=== PATIENT | female | born 1975 | race Hispanic/Latino ===

== ENCOUNTER 2017-12-05 04:27 | Emergency (ER) | payer OTHER ==
[~2017-12-05] VITALS: Ht 160 cm; Wt 70.3 kg
[~2017-12-05 04:27] MED LIST: BENTYL10 MG PO; SEASONIQUE 0.11 EACH; ZOFRAN ODT4 MG PO
[2017-12-05 04:53] LABS: BASOPHILS % 0.3 % (0.0-1.0); EOSINOPHILS # (AUTO) 0.2 (0.0-0.4); EOSINOPHILS % 1.5 % (0.0-6.0); HEMATOCRIT 37.7 % (34.2-44.1); LYMPHOCYTES # (AUTO) 2.7 (1.0-3.2); LYMPHOCYTES % 18.4 % (18.0-39.1); MEAN CORPUSCULAR HGB CONC 34.5 g/dL (31-35); MEAN CORPUSCULAR VOLUME 81.3 fL (81-99); MONOCYTES % 6.7 % (4.4-11.3); NEUTROPHILS # (AUTO) 10.7 (2.1-6.9); NEUTROPHILS % 72.8 % (38.7-80.0); PLATELET COUNT 328 x10e3/uL (140-360); RED BLOOD COUNT 4.64 x10e6/uL (3.6-5.1); RED CELL DISTRIBUTION WIDTH 12.8 % (11.7-14.4)
[2017-12-05 05:12] LABS: ALANINE AMINOTRANSFERASE 18 IU/L (0-55); ALBUMIN 3.9 g/dL (3.5-5.0); ALBUMIN/GLOBULIN RATIO 1.1 (0.8-2.0); ALKALINE PHOSPHATASE 94 IU/L (40-150); ANION GAP 14.7 mmol/L (8-16); BLOOD UREA NITROGEN 8 mg/dL (7-26); BUN/CREATININE RATIO 12 (6-25); CALCIUM 8.9 mg/dL (8.4-10.2); CARBON DIOXIDE 21 mmol/L (22-29); CHLORIDE 99 mmol/L (98-107); CREATINE KINASE 71 IU/L (29-168); CREATININE, SERUM 0.68 mg/dL (0.57-1.11); EST GLOMERULAR FILTRATION RATE > 60 ML/MIN (60-); GLUCOSE 97 mg/dL (74-118); POTASSIUM 3.7 mmol/L (3.5-5.1); SODIUM 131 mmol/L (136-145)
--- NOTE | 2017-12-05 05:53 | Diagnostic Imaging Report ---
EXAM: CHEST SINGLE (PORTABLE), AP 1 view INDICATION: Palpitations COMPARISON: AP view of the chest July 22, 2016 FINDINGS: LINES/TUBES: None LUNGS: No consolidations or edema. PLEURA: No effusions or pneumothorax. HEART AND MEDIASTINUM: Normal size and contour. BONES AND SOFT TISSUES: No acute findings. IMPRESSION: No acute thoracic abnormality. Signed by: Dr. Yuni Jimenes M.D. on 12/05/2017 5:50 AM
[2017-12-05 06:07] LABS: PREGNANCY TEST, URINE NEGATIVE (NEGATIVE)
[2017-12-05 06:09] LABS: BILIRUBIN,URINE NEGATIVE (NEGATIVE); CLARITY,URINE CLEAR (CLEAR); COLOR,URINE YELLOW (YELLOW); KETONES,URINE NEGATIVE (NEGATIVE); LEUKOCYTE ESTERASE ,URINE NEGATIVE (NEGATIVE); NITRITE,URINE NEGATIVE (NEGATIVE); PROTEIN,URINE DIPSTICK NEGATIVE (NEGATIVE); URINE UROBILINOGEN 0.2 mg/dL (0.2 - 1)
[2017-12-05 06:10] LABS: AMPHETAMINES SCREEN,URINE NEGATIVE (NEGATIVE); BENZODIAZEPINES SCREEN,URINE NEGATIVE (NEGATIVE); PHENCYCLIDINE SCREEN,URINE NEGATIVE (NEGATIVE)
[2017-12-05 06:11] LABS: EPITHELIAL CELLS,URINE FEW /LPF; RBC,URINE 0-5 /HPF (0-5)
[2017-12-05 06:42] VITALS: BP 117/75
== END 2017-12-05 06:59 | disposition home or self-care (01) ==
LOC: ER 04:27
DX: R00.2 Palpitations (principal); R05 Cough; R07.89 Other chest pain; J20.9 Acute bronchitis, unspecified; N30.90 Cystitis, unspecified without hematuria
CPT/HCPCS: 36415; 71045; 80053; 80307; 81001; 81025; 82550; 82553; 83880; 84484; 85025; 85379; 93005; 99284

== ENCOUNTER 2018-10-13 02:52 | Emergency (ER) | payer BC ==
[~2018-10-13] VITALS: Ht 160 cm; Wt 70.3 kg
--- OUTSIDE RECORDS SUMMARY | 2018-10-13 02:55 | XMS REPORT ---
[facility] Address Unknown Phone Unavailable Care Team Providers Care Drawing Press Operator Name Role Phone DR JULIANNA MONTANO Unavailable Unavailable Stella CHARLES Unavailable Unavailable Payers Payer Name Policy Type Policy Number Effective Date Expiration Date Problems This patient has no known problems. Allergies, Adverse Reactions, Alerts Allergy Name Allergy Type Status Severity Reaction(s) Onset Date Inactive Date Treating Clinician Comments iodine DA Active SV 2018-10-13 00:00:00 sulfamethoxazole DA Active SV 2018-10-13 00:00:00 trimethoprim DA Active SV 2018-10-13 00:00:00 iodine DA Active SV 2015-12-24 00:00:00 Medications This patient has no known medications. Encounters Start Date/Time End Date/Time Encounter Type Admission Type Attending Clinicians [facility] Facility Care Department Encounter ID 2018-02-28 14:56:00 2018-04-14 23:59:00 Outpatient JULIANNA RIBERA [facility] [place] [id number] Results Test Description Test Time Test Comments Text Results Atomic Results Result Comments MRI BRAIN AND IACS WO/W 2018-02-23 14:45:45 CLINICAL INDICATION: R42 Dizziness and giddinessMODALITY: Avanto 1.5 Jaimie 18 channel MRITECHNIQUE: High resolution imaging of the internal auditory canal region is obtained before and after contrast administration in the coronal and axial planes, 17 cc gadolinium. Diffusion imaging and pre and post contrast brain imaging are performed. High resolution 1 mm 3-D F SPGR axial images are obtained through the skull base. Sagittal T1, axial FLAIR, coronal T2 and axial postcontrast sequences are obtained through the entire brain.IMPRESSION:1. Normal evaluation of the internal auditory canals and skull base .2. No intracranial abnormalities are seen on dedicated brain sequences.FINDINGS:COMPARISON: noneThe internal auditory canals are normal bilaterally. VII and VIII nerve complexes are normal. There is no evidence of vestibular cochlear schwannoma or neuroma. No pathologic enhancement is seen in the IACs or within the skull base. Basal cisterns are normal. The adjacent medulla, philip, midbrain and cerebellum are normal. Jugular bulbs and carotid canals are normal at the skull base.Intracranially, diffusion imaging is normal. There are no acute infarcts or ischemic changes. There are no demyelinating lesions. No significant microvascular ischemic changes are seen. There are no intracranial hemorrhages, mass lesions or hydrocephalus. The craniocervical junction is intact without mass or Chiari malformation. The visualized sella and parasellar structures are normal.Normal flow voids are seen in carotid and vertebrobasilar arteries. Dural venous sinuses are patent.Mastoid air cells are clear.The visualized paranasal sinuses are clear.Following contrast administration there is no evidence of pathologic enhancement in visualized skull base structures, brain or meninges. CHEST SINGLE (PORTABLE) 2017-12-05 05:49:00 [place] [id number] Patient Name: ASAEL MAYNARD MR #: [id number] : 1975 Age/Sex: 42/F Req #: [id number] Adm Physician: Ordered by: GALINA CHARLES MD Report #: [id number] Location: ER Room/Bed: Procedure: [id number] DX/CHEST SINGLE (PORTABLE) Exam Date: 12/05/17 Exam Time: 05 REPORT STATUS: Signed EXAM: CHEST SINGLE (PORTABLE), AP 1 view INDICATION: Palpitations COMPARISON: AP view of the chest July 22, 2016 FINDINGS: LINES/TUBES: None LUNGS: No consolidations or edema. PLEURA: No effusions or pneumothorax. HEART AND MEDIASTINUM: Normal size and contour. BONES AND SOFT TISSUES: No acute findings. IMPRESSION: No acute thoracic abnormality. Signed by: Dr. Sara Jimenes M.D. on 12/05/2017 5:50 AM Dictated By: SARA JIMENES MD 9 Transcribed By: SOLANGE on 12/05/17549 COPY TO: GALINA CHARLES MD
--- OUTSIDE RECORDS SUMMARY | 2018-10-13 02:55 | XMS REPORT ---
Author Author Ashlyn Morin [facility] eClinical[employer] Address Unknown Phone Unavailable Care Team Providers Care Project Development Engineer Name Role Phone Ashlyn Morin CP Unavailable Allergies, Adverse Reactions, Alerts Substance Reaction Event Type IODINE Swelling and shortness of breath.pp Non Drug Allergy Problems Problem Type Condition Code Onset Dates Condition Status Assessment Deviated nasal septum J34.2 Active Assessment Hearing loss - Perceived H93.293 Active Assessment Hypertrophy of nasal turbinates J34.3 Active Assessment Benign paroxysmal vertigo, unspecified ear H81.10 Active Assessment Pulsatile tinnitus, left ear H93.A2 Active Problem Benign paroxysmal vertigo, unspecified ear H81.10 Active Problem Hypertrophy of nasal turbinates J34.3 Active Problem Hearing loss - Perceived H93.293 Active Problem Pulsatile tinnitus, left ear H93.A2 Active Assessment Dizziness and giddiness R42 Active Problem Deviated nasal septum J34.2 Active Problem Dizziness and giddiness R42 Active Medications Medication Code System Code Instructions Start Date End Date Status Dosage Meclizine HCl [facility] [address]-80 Active not defined Results No Known Results Summary Purpose Sustain[employer] Submission
--- OUTSIDE RECORDS SUMMARY | 2018-10-13 02:55 | XMS REPORT ---
Author Author Ashlyn Morin [facility] e[employer] Address Unknown Phone Unavailable Care Team Providers Care Set Up Mechanic Stamping Machines Name Role Phone Ashlyn Morin CP Unavailable Allergies, Adverse Reactions, Alerts Substance Reaction Event Type IODINE Swelling and shortness of breath.pp Non Drug Allergy Problems Problem Type Condition Code Onset Dates Condition Status Assessment Dizziness and giddiness R42 Active Problem Dizziness and giddiness R42 Active Problem Pulsatile tinnitus, left ear H93.A2 Active Problem Nasal congestion R09.81 Active Problem Allergic rhinitis J30.89 Active Problem Otalgia, bilateral H92.03 Active Problem Hypertrophy of nasal turbinates J34.3 Active Problem Deviated nasal septum J34.2 Active Problem Hearing loss - Perceived H93.293 Active Problem Benign paroxysmal vertigo, unspecified ear H81.10 Active Assessment Nasal congestion R09.81 Active Assessment Pulsatile tinnitus, left ear H93.A2 Active Assessment Benign paroxysmal vertigo, unspecified ear H81.10 Active Assessment Allergic rhinitis J30.89 Active Assessment Otalgia, bilateral H92.03 Active Medications Medication Code System Code Instructions Start Date End Date Status Dosage Scopolamine [facility] 66874336211 1 MG/3DAYS Transdermal Feb 25, 2018 Apr 26, 2018 Active 1 patch to skin as needed Meclizine HCl [facility] [address]-53 Active not defined Meclizine HCl [facility] 56009132735 25 MG Orally Once a day Feb 25, 2018 Active 1 tablet as needed Magnesium Oxide ND 16232718242 400 MG Orally BID Feb 25, 2018 Jun 25, 2018 Active 1 tablet as needed Results No Known Results Summary Purpose eClinicalWorks Submission
--- OUTSIDE RECORDS SUMMARY | 2018-10-13 02:55 | XMS REPORT ---
Author Author Ashlyn Morin Organization [employer] Address Unknown Phone Unavailable Care Team Providers Care Trace Clerk Name Role Phone Ashlyn Morin CP Unavailable Allergies No Known Allergies Problems Problem Type Condition Code Onset Dates Condition Status Problem Dizziness and giddiness R42 Active Problem Pulsatile tinnitus, left ear H93.A2 Active Problem Nasal congestion R09.81 Active Problem Allergic rhinitis J30.89 Active Problem Otalgia, bilateral H92.03 Active Problem Hypertrophy of nasal turbinates J34.3 Active Problem Deviated nasal septum J34.2 Active Problem Hearing loss - Perceived H93.293 Active Problem Benign paroxysmal vertigo, unspecified ear H81.10 Active Medications No Known Medications Results No Known Results Summary Purpose eClinicalWorks Submission
--- OUTSIDE RECORDS SUMMARY | 2018-10-13 02:55 | XMS REPORT | Clinical Summary ---
Author Author [employer] Organization [facility] Address Unknown Phone Unavailable Care Team Providers Care Product Management Analyst Name Role Phone Renetta Freedman DO PCP Allergies Comments Active Allergy Reactions Severity Noted Date Iodine Rash, High 09/03/2009 Shortness Of Breath Shellfish Containing Rash, High 09/03/2009 Products Shortness Of Breath Medications End Date Status Medication Sig Dispensed Refills Start Date Active L Take by 0 norgest/e.estradiol-e.est mouth. rad (SEASONIQUE) 0.15 mg-30 mcg (84)/10 mcg (7) tablets,dose pack,3 month 02/03/2019 Active crisaborole 2 % Apply 1 60 g 1 ointmentIndications: application 8 Intrinsic eczema topically 2 (two) times a day. 02/03/2019 Active triamcinolone (NASACORT) 2 sprays into 16.5 g 2 55 mcg nasal each nostril 8 inhalerIndications: daily. Chronic non-seasonal allergic rhinitis, unspecified trigger 02/03/2018 Discontinued triamcinolone (NASACORT) 2 sprays into 16.5 g 2 55 mcg nasal each nostril 8 inhalerIndications: daily. Chronic non-seasonal allergic rhinitis, unspecified trigger 10/16/2017 amoxicillin-pot Take 1 tablet 20 tablet 0 clavulanate (AUGMENTIN) by mouth 2 8 875-125 mg per (two) times a tabletIndications: Ear day for 10 pain, left, Acute days. non-recurrent maxillary sinusitis 02/03/2018 Discontinued crisaborole 2 % Apply 1 60 g 1 ointmentIndications: application 8 Intrinsic eczema topically 2 (two) times a day. 03/02/2018 meclizine (ANTIVERT) 25 Take 1 tablet 30 tablet 0 mg tablet (25 mg total) 8 by mouth 3 (three) times a day as needed for dizziness for up to 30 days. 03/02/2018 ibuprofen (ADVIL,MOTRIN) Take 1 tablet 30 tablet 0 600 MG tablet (600 mg 8 total) by mouth every 6 (six) hours as needed for mild pain for up to 30 days. 03/02/2018 metoclopramide (REGLAN) Take 1 tablet 30 tablet 0 10 MG tablet (10 mg total) 8 by mouth every 6 (six) hours for 30 days. Active Problems Problem Noted Date Dizziness 02/03/2018 Benign paroxysmal positional vertigo of left ear 02/03/2018 Vision changes 02/03/2018 Other headache syndrome 02/03/2018 Ear pain, left 10/06/2017 Chronic non-seasonal allergic rhinitis 10/06/2017 Dysuria 08/20/2016 Itchy eyes 08/20/2016 Post-nasal drip 08/20/2016 Acute non-recurrent maxillary sinusitis 08/20/2016 Intrinsic eczema 08/20/2016 Encounters Care Team Description Date Type Specialty Renetta Freedman DO Need for influenza vaccination (Primary Dx) 02/22/2018 Clinical Family Medicine Support Renetta Freedman DO 02/18/2018 Telephone Family Medicine Renetta Freedman DO Dizziness (Primary Dx); Intrinsic eczema; Chronic non-seasonal allergic rhinitis, unspecified trigger; Benign paroxysmal positional vertigo of left ear; Vision changes; Other headache syndrome 02/03/2018 Office Visit Family Medicine Alis Pink MD Other migraine without status migrainosus, not intractable (Primary Dx) 01/31/2018 Emergency Emergency Medicine ProviderAnaid MD 01/14/2018 Orders Only Internal Medicine Renetta Freedman DO Annual physical exam 01/11/2018 Lab Lab Renetta Freedman DO Annual physical exam (Primary Dx); Intrinsic eczema; Need for Tdap vaccination 01/11/2018 Office Visit Family Medicine Renetta Freedman DO 01/04/2018 Telephone Family Medicine after 10/12/2017 Immunizations Name Dates Previously Given Next Due FLUBLOK QUAD PF 02/22/2018 INFLUENZA QUAD 02/16/2011 Influenza Trivalent 02/08/2016 Tdap 01/11/2018, 02/08/2008 Family History Medical History Relation Name Comments Diabetes Brother Kane Vargas Heart disease Father Aniket September Sam Kidney disease Father Aniket Vargas Arthritis Mother Katie Vargas Relation Name Status Comments Brother Kane Vargas Father Aniket Vargas Mother Katie Vargas Alive Social History Date Tobacco Use Types Packs/Day Years Used Never Smoker Smokeless Tobacco: Never Used Alcohol Use Drinks/Week oz/Week Comments No Sex Assigned at Date Recorded Not on file Industry Job Start Date Occupation Not on file Not on file Not on file Travel End Travel History Travel Start No recent travel history available. Last Filed Vital Signs Time Taken Vital Sign Reading 02/03/2018 3:47 PM CDT Blood Pressure 122/81 02/03/2018 3:47 PM CDT Pulse 79 01/31/2018 10:37 PM CDT Temperature 36.2 C (97.2 F) 01/31/2018 10:37 PM CDT Respiratory Rate 16 02/03/2018 3:47 PM CDT Oxygen Saturation 98% - Inhaled Oxygen - Concentration 02/03/2018 3:47 PM CDT Weight 83.5 kg (184 lb) 02/03/2018 3:47 PM CDT Height 162.6 cm (5' 4") 02/03/2018 3:47 PM CDT Body Mass Index 31.58 Plan of Treatment Health Maintenance Due Date Last Done Comments INFLUENZA VACCINE 12/08/2018 02/22/2018, 02/08/2016, 02/16/2011 Procedures Comments Procedure Name Priority Date/Time Associated Diagnosis CT HEAD WO CONTRAST STAT 01/31/2018 9:58 PM CDT ESTIMATED GFR STAT 01/31/2018 9:04 PM CDT COMPREHENSIVE METABOLIC STAT 01/31/2018 PANEL 9:04 PM CDT HC COMPLETE BLD COUNT STAT 01/31/2018 W/AUTO DIFF 9:04 PM CDT HCG QUALITATIVE, URINE STAT 01/31/2018 SCREEN 8:45 PM CDT URINALYSIS STAT 01/31/2018 8:45 PM CDT [id number] Routine 01/14/2018 URINALYSIS, AUTOMATED Routine 01/11/2018 Annual physical exam WITH MICROSCOPY 10:29 AM CDT LIPID PANEL Routine 01/11/2018 Annual physical exam 10:29 AM CDT after 10/12/2017 Results * CT Head Wo Contrast (01/31/2018 9:58 PM CDT) Specimen Narrative Performed At EXAMINATION:CT HEAD WO CONTRAST [facility] CLINICAL HISTORY:headache COMPARISON:None. TECHNIQUE: Noncontrast head CT performed using radiation dose reduction techniques.Technical factors are evaluated and adjusted to ensure appropriate moderation of exposure.Automated dose management technology is applied to adjust radiation exposure while achieving a diagnostic quality image. FINDINGS: No acute intra or extra-axial hemorrhage identified. The castro-white matter differentiation is preserved. The basal ganglia, thalami, midbrain, philip and cervicomedullary junction are unremarkable. No mass, mass effect, or midline shift is seen. Ventricles and sulci are normal in appearance for patient's age.Basal cisterns are patent. Calvarium is intact. The orbital contents are symmetric and normal in appearance. The visualized paranasal sinuses are unremarkable. The mastoid air cells and middle ear cavities are clear. Scalp soft tissues are unremarkable. IMPRESSION: No acute intracranial abnormality identified. [facility]-[id number] Procedure Note Hm Interface, Radiology Results Incoming - 01/31/2018 10:03 PM CDT EXAMINATION: CT HEAD WO CONTRAST CLINICAL HISTORY: headache COMPARISON: None. TECHNIQUE: Noncontrast head CT performed using radiation dose reduction techniques. Technical factors are evaluated and adjusted to ensure appropriate moderation of exposure. Automated dose management technology is applied to adjust radiation exposure while achieving a diagnostic quality image. FINDINGS: No acute intra or extra-axial hemorrhage identified. The acstro-white matter differentiation is preserved. The basal ganglia, thalami, midbrain, philip and cervicomedullary junction are unremarkable. No mass, mass effect, or midline shift is seen. Ventricles and sulci are normal in appearance for patient's age. Basal cisterns are patent. Calvarium is intact. The orbital contents are symmetric and normal in appearance. The visualized paranasal sinuses are unremarkable. The mastoid air cells and middle ear cavities are clear. Scalp soft tissues are unremarkable. IMPRESSION: No acute intracranial abnormality identified. [facility]-[id number] Performing Organization Address City/State/Zipcode Phone Number [facility] [address] [place] [address] * Estimated GFR (01/31/2018 9:04 PM CDT) Pathologist [facility] Estimated GFR 69 mL/min/1.73 m2 DEPARTMENT Comment: OF PATHOLOGY CatergoryUnitsInte AND GENOMIC rpretation MEDICINE, [address] >=90 Normal or high [facility] 60-89Mildly decreased [id number] Mildly to moderately decreased M2v77-09 Moderately to severely decreased G4 15-29Severely decreased G5 <15Kidney failure The eGFR was calculated using the Chronic Kidney Disease Epidemiology Collaboration (CKD-EPI) equation. Interpretation is based on recommendations of the National Kidney Foundation-Kidney Disease Outcomes Quality Initiative (NKF-KDOQI) published in 2014. Specimen Plasma specimen Performing Organization Address City/State/Zipcode Phone Number [facility] [address] [place] [id number] PATHOLOGY AND GENOMIC MEDICINE, [facility] * CBC with platelet and differential (01/31/2018 9:04 PM CDT) Pathologist [facility] WBC 10.20 4.50 - 11.00 k/uL [facility] DEPARTMENT OF PATHOLOGY AND GENOMIC MEDICINE RBC 4.74 4.20 - 5.50 m/uL [facility] DEPARTMENT OF PATHOLOGY AND GENOMIC MEDICINE HGB 13.1 12.0 - 16.0 g/dL [facility] DEPARTMENT OF PATHOLOGY AND GENOMIC MEDICINE HCT 40.2 37.0 - 47.0 % [facility] DEPARTMENT OF PATHOLOGY AND GENOMIC MEDICINE MCV 84.8 82.0 - 100.0 fL [facility] DEPARTMENT OF PATHOLOGY AND GENOMIC MEDICINE MCH 27.6 27.0 - 34.0 pg [facility] DEPARTMENT OF PATHOLOGY AND GENOMIC MEDICINE MCHC 32.6 31.0 - 37.0 g/dL [facility] DEPARTMENT OF PATHOLOGY AND GENOMIC MEDICINE RDW - SD 42.6 37.0 - 55.0 fL [facility] DEPARTMENT OF PATHOLOGY AND GENOMIC MEDICINE MPV 10.0 8.8 - 13.2 fL [facility] DEPARTMENT OF PATHOLOGY AND GENOMIC MEDICINE Platelet count 321 150 - 400 k/uL [facility] DEPARTMENT OF PATHOLOGY AND GENOMIC MEDICINE Neutrophils 66.5 39.0 - 69.0 % [facility] DEPARTMENT OF PATHOLOGY AND GENOMIC MEDICINE Lymphocytes 22.6 (L) 25.0 - 45.0 % [facility] DEPARTMENT OF PATHOLOGY AND GENOMIC MEDICINE Monocytes 7.4 0.0 - 10.0 % [facility] DEPARTMENT OF PATHOLOGY AND GENOMIC MEDICINE Eosinophils 2.9 0.0 - 5.0 % [facility] DEPARTMENT OF PATHOLOGY AND GENOMIC MEDICINE Basophils 0.3 0.0 - 1.0 % [facility] DEPARTMENT OF PATHOLOGY AND GENOMIC MEDICINE Specimen Blood Performing Organization Address City/State/Zipcode Phone Number [address] [address] PATHOLOGY AND GENOMIC MEDICINE * Comprehensive metabolic panel (01/31/2018 9:04 PM CDT) Sodium 142 128 - 145 mEq/L [facility] Potassium 3.7 3.6 - 5.1 mEq/L [facility] CO2 23 18 - 33 mEq/L [facility] Chloride 106 98 - 108 mEq/L [facility] Glucose 89 73 - 118 mg/dL [facility] Calcium 9.2 8.0 - 10.3 mg/dL [facility] BUN 11 7 - 22 mg/dL [facility] Creatinine 1.0 (H) 0.5 - 0.9 mg/dL [facility] Alkaline 88 42 - 141 U/L DEPARTMENT phosphatase OF PATHOLOGY [facility] ALT 15 10 - 47 U/L [facility] AST 23 11 - 38 U/L [facility] Total bilirubin 0.5 0.2 - 1.6 mg/dL [facility] Albumin 3.7 3.3 - 5.5 g/dL [facility] Protein 7.5 6.4 - 8.1 g/dL [facility] Anion gap 13@ANIO 7 - 15 mEq/L [facility] A/G ratio 1.0 0.7 - 3.8 [facility] Specimen Plasma specimen Performing Organization Address City/State/[place] Number [place] [address] PATH[facility] * Urinalysis (01/31/2018 8:45 PM CDT) Glucose, UA Negative Negative [facility] Bilirubin, UA Negative Negative [facility] Ketones, UA Negative Negative [facility] PATHOLOG[facility] Specific =<1.005 1.001 - 1.035 DEPARTMENT gravity, UA OF PATHOLOGY [facility] Blood, UA Small (A) Negative [facility] PATHOLOG[facility] pH, UA 7.0 5.0 - 8.5 [facility] Protein, UA Negative Negative [facility] PATHOLOGY [facility] Urobilinogen, <2.0 <2.0 DEPARTMENT UA OF PATHOLOGY AND [facility] Nitrite, UA Negative Negative DEPART[facility] OF PATHOLOGY AND [facility] Leukocyte Negative Negative DEPARTMENT esterase, UA OF PATHOLOGY AND [facility]INE[facility] Color, UA Yellow [facility] PATHOLOG[facility] Appearance, UA Clear [facility] PATHOLOG[facility] Specimen Urine Performing Organization Address City/[facility]/Zipcode [place] [address] PATH[facility] * hCG qualitative, urine screen (01/31/2018 8:45 PM CDT) hCG NegativeComment: Sensitivity DEPARTMENT qualitative, of HCG test: 25 mIU/mL OF PATHOLOGY urine AND GENOMIC [facility]INEV[facility] Specimen Urine Performing Organization Address City/State/[place] [address] PATH[facility] * Miscellaneous Lab Result (01/14/2018) Specimen Blood Narrative Performed At * Urinalysis, automated with microscopy (01/11/2018 10:29 AM CDT) Color, UA YELLOW YELLOW [facility] [place] Appearance CLEAR CLEAR [facility] [place] Specific 1.005 1.001 - 1.035 [facility] gravity, urine [facility] [place] pH, urine 6.5 5.0 - 8.0 [facility] [place] Glucose, urine NEGATIVE NEGATIVE [facility] [place] Bilirubin, UA NEGATIVE NEGATIVE [facility] [place] Ketones, UA NEGATIVE NEGATIVE [facility] [place] Occult blood, TRACE (A) NEGATIVE [facility] [place] Protein, UA NEGATIVE NEGATIVE [facility] [place] Nitrite, UA NEGATIVE NEGATIVE [facility] [place] Leukocyte NEGATIVE NEGATIVE [facility] esterase, UA [facility] [place] WBC, UA NONE SEEN < OR=5 /HPF [facility] [place] RBC, UA NONE SEEN < OR=2 /HPF [facility] [place] Squamous NONE SEEN < OR=5 /HPF [facility] epithelial DIAGNOSTICS cells, UA [place] Bacteria, UA NONE SEEN NONE SEEN /HPF [facility] [place] Hyaline casts, NONE SEEN NONE SEEN /LPF [facility] UA [facility] [place] Specimen Blood Resulting Agency Comment Performing Organization Information: Site ID: [id number] Name: [facility] Address: [address] [place] [id number] Director: Mary Ellen Feldman Performing Organization Address City/State/Zipcode Phone Number [facility] [place] [address] * Lipid panel (01/11/2018 10:29 AM CDT) Pathologist [facility] Cholesterol, 164 <200 mg/dL [facility] total [facility] [place] HDL cholesterol 56 >50 mg/dL [facility] [place] Triglycerides 76 <150 mg/dL [facility] [place] LDL cholesterol 91 mg/dL (calc) [facility] calculated Comment: DIAGNOSTICS Reference range: <100 [place] Desirable range <100 mg/dL for primary prevention; <70 mg/dL for patients with CHD or diabetic patients with > or=2 CHD risk factors. LDL-C is now calculated using the Minoo calculation, which is a validated novel method providing better accuracy than the Friedewald equation in the estimation of LDL-C. Spencer WEAVER et al. HORACIO. 2013;310(19): 1056-4753 (http://education.[employer]/faq/YIB049) Cholesterol/HDL 2.9 <5.0 (calc) [facility] ratio [facility] [place] Non-HDL 108 <130 mg/dL (calc) [facility] cholesterol Comment: DIAGNOSTICS For patients with diabetes [place] plus 1 major ASCVD risk factor, treating to a non-HDL-C goal of <100 mg/dL (LDL-C of <70 mg/dL) is considered a therapeutic option. Specimen Blood Resulting Agency Comment Performing Organization Information: Site ID: [id number] Name: [facility] Address: [address] [place] [id number] Director: Mary Ellen Feldman Performing Organization Address City/State/Zipcode Phone Number [employer] [place] [address] [place], [place] [id number] after 10/12/2017 Insurance Type Payer Benefit Subscriber ID Effective Phone Address Plan / Dates Group PPO BCBS BCBS OUT xxxxxxxxxxxx 2018- OF STATE Present Advance Directives Patient has advance care planning documents on file. For more information, lea goldsmith contact: Italo Brown [address] [place] [address]
[2018-10-13] MEDS ORDERED: FAMOTIDINE 20 MG/2 ML VIAL IV STA (03:09)
[2018-10-13] MEDS ORDERED: METHYLPREDNISOLONE SOD SUCC 125 MG/2ML VIAL IV ONE (03:15)
[2018-10-13] MEDS ORDERED: SODIUM CHLORIDE 0.9% 1000ML 1,000 ML IV ONE (03:15)
[2018-10-13] MEDS ORDERED: DIPHENHYDRAMINE HCL INJ 50 MG/ML VIAL IV ONE (03:15)
[2018-10-13 03:39] LABS: BASOPHILS % 0.3 % (0.0-1.0); EOSINOPHILS # (AUTO) 0.2 (0.0-0.4); EOSINOPHILS % 1.2 % (0.0-6.0); HEMOGLOBIN 13.3 g/dL (12.0-16.0); LYMPHOCYTES # (AUTO) 1.6 (1.0-3.2); LYMPHOCYTES % 11.7 % (18.0-39.1); MEAN CORPUSCULAR HGB CONC 34.1 g/dL (31-35); MEAN CORPUSCULAR VOLUME 82.1 fL (81-99); MONOCYTES # (AUTO) 0.6 (0.2-0.8); MONOCYTES % 4.3 % (4.4-11.3); NEUTROPHILS # (AUTO) 10.9 (2.1-6.9); NEUTROPHILS % 82.1 % (38.7-80.0); PLATELET COUNT 360 x10e3/uL (140-360); RED BLOOD COUNT 4.75 x10e6/uL (3.6-5.1); RED CELL DISTRIBUTION WIDTH 13.3 % (11.7-14.4)
[2018-10-13 03:40] LABS: BILIRUBIN,URINE NEGATIVE (NEGATIVE); CLARITY,URINE CLEAR (CLEAR); COLOR,URINE YELLOW (YELLOW); KETONES,URINE NEGATIVE (NEGATIVE); LEUKOCYTE ESTERASE ,URINE NEGATIVE (NEGATIVE); NITRITE,URINE NEGATIVE (NEGATIVE); PROTEIN,URINE DIPSTICK NEGATIVE (NEGATIVE); URINE UROBILINOGEN 0.2 mg/dL (0.2 - 1)
[2018-10-13 03:42] LABS: PREGNANCY TEST, URINE NEGATIVE (NEGATIVE)
[2018-10-13 03:50] LABS: BACTERIA,URINE FEW /HPF; WBC,URINE (MAN) 0-5 /HPF (0-5)
[2018-10-13 03:51] LABS: EPITHELIAL CELLS,URINE FEW /LPF
[2018-10-13 03:56] LABS: ALANINE AMINOTRANSFERASE 15 IU/L (0-55); ALBUMIN 3.7 g/dL (3.5-5.0); ALBUMIN/GLOBULIN RATIO 0.9 (0.8-2.0); ALKALINE PHOSPHATASE 108 IU/L (40-150); ANION GAP 12.6 mmol/L (8-16); BLOOD UREA NITROGEN 12 mg/dL (7-26); BUN/CREATININE RATIO 15 (6-25); CALCIUM 8.7 mg/dL (8.4-10.2); CARBON DIOXIDE 19 mmol/L (22-29); CHLORIDE 103 mmol/L (98-107); CREATINE KINASE 82 IU/L (29-168); CREATININE, SERUM 0.81 mg/dL (0.57-1.11); EST GLOMERULAR FILTRATION RATE > 60 ML/MIN (60-); GLUCOSE 113 mg/dL (74-118); POTASSIUM 3.6 mmol/L (3.5-5.1); SODIUM 131 mmol/L (136-145)
--- NOTE | 2018-10-13 04:00 | Diagnostic Imaging Report ---
EXAMINATION: CHEST SINGLE (PORTABLE) INDICATION: ^SOB ^[id number] ^[id number] ^Y COMPARISON: 12/05/2017 FINDINGS: AP view TUBES and LINES: None. LUNGS: Lungs are well inflated. Lungs are clear. There is no evidence of pneumonia or pulmonary edema. PLEURA: No pleural effusion or pneumothorax. HEART AND MEDIASTINUM: The cardiomediastinal silhouette is unremarkable. BONES AND SOFT TISSUES: No acute osseous lesion. Soft tissues are unremarkable. UPPER ABDOMEN: No free air under the diaphragm. IMPRESSION: No acute thoracic abnormality. Signed by: Dr. Tam Her MD on 10/13/2018 3:57 AM
[2018-10-13 04:11] VITALS: BP 152/82
== END 2018-10-13 04:24 | disposition home or self-care (01) ==
LOC: ER 02:52
DX: R00.2 Palpitations (principal); Z82.49 Family history of ischemic heart disease and other diseases of the circulatory system; D72.829 Elevated white blood cell count, unspecified; E87.1 Hypo-osmolality and hyponatremia; R06.00 Dyspnea, unspecified; L27.1 Localized skin eruption due to drugs and medicaments taken internally; T36.8X5A Adverse effect of other systemic antibiotics, initial encounter; Y92.019 Unspecified place in single-family (private) house as the place of occurrence of the external cause
CPT/HCPCS: 36415; 71045; 80053; 81001; 81025; 82550; 82553; 84484; 85025; 85379; 93005; 96374; 99283; J1200; J2930; J7030